=== PATIENT | male | born 1940 ===

== ENCOUNTER 2018-02-02 07:08 | Emergency (ER) | payer OTHER ==
[~2018-02-02] VITALS: Ht 175.3 cm; Wt 67.6 kg
[2018-02-02] MEDS ORDERED: VALSARTAN-HCTZ1 EAC4 PO (07:28)
[2018-02-02] MEDS ORDERED: ALDACTONE25 MG PO (07:29)
[2018-02-02] MEDS ORDERED: TOPROL XL50 M1 PO (07:29)
[2018-02-02] MEDS ORDERED: AMIODARONE HCL200 MG PO (07:29)
[2018-02-02] MEDS ORDERED: XARELTO15 MG PO (07:30)
[2018-02-02] MEDS ORDERED: DEMADEX10 MG PO (07:30)
== END 2018-02-02 12:22 | disposition home or self-care (01) ==
LOC: ER 07:08
DX: M75.102 Unspecified rotator cuff tear or rupture of left shoulder, not specified as traumatic (principal); M25.512 Pain in left shoulder; S40.012S Contusion of left shoulder, sequela; W18.09XS Striking against other object with subsequent fall, sequela